=== PATIENT | female | born 1995 | race Caucasian/White ===

== ENCOUNTER 2016-09-01 11:09 | Emergency (ER) | payer OTHER ==
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
--- NOTE | ~2016-09-01 | EKG ---
PATIENT: CHERRY CLIFFORD UNIT #: [id number] Ventricular Rate: 86 BPM Atrial Rate: 86 BPM P-R Interval: 174 ms QRS Duration: 78 ms Q-T Interval: 352 ms QTC Calculation(Bezet): 421 ms P [place]: 34 degrees Calculated R [place]: 13 degrees Calculated T [place]: 16 degrees Diagnosis Line: Normal sinus rhythm Diagnosis Line: Normal ECG Diagnosis Line: When compared with ECG of 12-NOV-2012 03:06, Diagnosis Line: No significant change was found Diagnosis Line: Confirmed by MATTHEW MARTIN MD ([id number]) on 09/07/2016 Diagnosis Line: 7:59:03 PM INTERPRETING MD: VERONICA PRITCHARD
[~2016-09-01 11:09] MED LIST: AUGMENTIN PO; BACTRIM DS TABL1 TA1 PO; BENZONATATE PO; FLEXERIL10 MG PO; GENOPTIC5 ML OP; HYDROCODON-ACE1 EAC9 PO; IBUPROFEN PO; IBUPROFEN600 MG PO; IBUPROFEN800 MG PO; NO MEDICATIONS; ORUDIS75 M1 DOB; PREDNISONE PO; RONDEC-DM ORAL30 ML PO; TYLENOL #3 PO; VENTOLIN5 MG/ML IH; ZITHROMAX PO
[2016-09-03] MEDS ORDERED: NO MEDICATIONS (01:57)
== END 2016-09-01 11:38 | disposition home or self-care (01) ==
LOC: SED 11:09
DX: R07.89 Other chest pain (principal); J06.9 Acute upper respiratory infection, unspecified; M94.0 Chondrocostal junction syndrome [Tietze]; F17.200 Nicotine dependence, unspecified, uncomplicated; Z90.49 Acquired absence of other specified parts of digestive tract
CPT/HCPCS: 71020; 93005; 99284

== ENCOUNTER 2016-09-03 02:20 | Emergency (ER) | payer OTHER ==
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
[2016-09-03 03:27] LABS: BASOPHIL% 0.6 % (0-2.5); EOSINOPHIL% 0.2 % (0.0-7.0); HEMATOCRIT 39.1 % (35.0-45.0); HEMOGLOBIN 13.3 gm/dL (12.0-16.0); LYMPHOCYTE# 0.9 X10e3 (1.0-3.5); LYMPHOCYTE% 27.4 % (17.0-45.0); MEAN CELL VOLUME 88.8 FL (83-96); MEAN CORPUSCULAR HEMOGLOBIN 30.3 PG (28-34); MEAN CORPUSCULAR HGB CONC 34.1 g/dL (30-36); MONOCYTE# 0.4 X10e3 (0-1.0); NEUTROPHIL# 1.9 X10e3 (1.5-7.1); NEUTROPHIL% 59.8 % (40-75); PLATELET COUNT 169 X10e3 (140-420); RED CELL DISTRIBUTION WIDTH 12.5 % (11.0-15.5); WHITE BLOOD COUNT 3.2 X10e3 (4.0-10.5)
[2016-09-03 03:28] LABS: DIFF IND NO
[2016-09-03 03:31] LABS: INFLUENZA A NEG (NEG); INFLUENZA B POS (NEG)
[2016-09-03 03:36] LABS: POC - CKMB <1.0 ng/mL (0.0-7.9); POC - MYOGLOBIN 40.2 ng/mL (0.0-169.0); POC - TROPONIN <0.05 ng/mL (<=0.05)
[2016-09-03 03:41] LABS: ALBUMIN SERUM 4.3 g/dL (3.5-5.0); BUN/CREATININE RATIO 7.77; CALCIUM SERUM 8.7 mg/dL (8.4-10.2); CREATININE SERUM 0.9 mg/dL (0.6-1.4); GLOM FILT RATE Estimated 90.8 mL/min (>60); POTASSIUM 3.9 mmol/L (3.5-5.1); PROTEIN TOTAL SERUM 8.2 g/dL (6.0-8.3)
[2016-09-03 03:45] LABS: URINE SOURCE CLEAN CATCH
[2016-09-03 03:48] LABS: URINE BILIRUBIN NEG (NEG); URINE BLOOD TRACE-INTACT (NEG); URINE COLOR YELLOW; URINE GLUCOSE NEG (NORM); URINE KETONE NEG (NEG); URINE LEUKOCYTE ESTERASE 3+ (NEG); URINE NITRATE NEG (NEG); URINE PROTEIN NEG (NEG)
[2016-09-03 03:55] LABS: MICRO INDICATED? YES; URINE APPEARANCE SL HAZY
[2016-09-03 03:56] LABS: CULTURE INDICATED? YES; URINE BACTERIA NEG (NEG); URINE WBC 50-100 /[HPF] (0-5)
[2016-09-03 03:57] LABS: URINE MUCUS PRESENT; URINE SQUAMOUS EPITHELIAL CELL OCCAS /[HPF]; URINE TRANSITIONAL EPI CELLS FEW /[HPF]
[2016-09-03 03:58] LABS: AMPHETAMINE NEG (NEG); BARBITURATES NEG (NEG); BENZODIAZEPINES POS (NEG); COCAINE NEG (NEG); MARIJUANA POS (NEG); OPIATES POS (NEG); TRICYCLIC ANTIDEPRESSANTS NEG (NEG); U METHADONE NEG (NEG)
== END 2016-09-03 05:40 | disposition home or self-care (01) ==
LOC: SED 02:20
PROVIDERS: Emergency Medicine
DX: S09.90XA Unspecified injury of head, initial encounter (principal); S16.1XXA Strain of muscle, fascia and tendon at neck level, initial encounter; S39.012A Strain of muscle, fascia and tendon of lower back, initial encounter; N39.0 Urinary tract infection, site not specified; J11.1 Influenza due to unidentified influenza virus with other respiratory manifestations; F17.200 Nicotine dependence, unspecified, uncomplicated; F19.10 Other psychoactive substance abuse, uncomplicated; V49.50XA Passenger injured in collision with unspecified motor vehicles in traffic accident, initial encounter
CPT/HCPCS: 36415; 70450; 71020; 72040; 72100; 80053; 80307; 81003; 82553; 83690; 83874; 84484; 84703; 85025; 87086; 87804; 99284

== ENCOUNTER 2017-01-02 00:59 | Emergency (ER) | payer OTHER ==
[~2017-01-02] VITALS: Ht 160 cm; Wt 81.6 kg
[2017-01-02 02:40] LABS: BASOPHIL% 0.8 % (0-2.5); DIFF IND NO; EOSINOPHIL% 0.6 % (0.0-7.0); HEMATOCRIT 38.8 % (35.0-45.0); HEMOGLOBIN 13.3 gm/dL (12.0-16.0); LYMPHOCYTE# 1.4 X10e3 (1.0-3.5); LYMPHOCYTE% 24.1 % (17.0-45.0); MEAN CELL VOLUME 89.5 FL (83-96); MEAN CORPUSCULAR HEMOGLOBIN 30.8 PG (28-34); MEAN CORPUSCULAR HGB CONC 34.4 g/dL (30-36); MEAN PLATELET VOLUME 7.2 FL (6.5-11.5); MONOCYTE# 0.5 X10e3 (0-1.0); MONOCYTE% 9.3 % (3.0-12.0); NEUTROPHIL# 3.8 X10e3 (1.5-7.1); NEUTROPHIL% 65.2 % (40-75); PLATELET COUNT 265 X10e3 (140-420); RED BLOOD COUNT 4.33 X10e (3.90-5.30); RED CELL DISTRIBUTION WIDTH 12.5 % (11.0-15.5); WHITE BLOOD COUNT 5.7 X10e3 (4.0-10.5)
[2017-01-02 03:04] LABS: ALBUMIN SERUM 4.4 g/dL (3.5-5.0); BILIRUBIN, DIRECT 0.1 mg/dL (0.0-0.2); BILIRUBIN,INDIRECT 0.8 mg/dL (0.0-0.9); BILIRUBIN,TOTAL 0.9 mg/dL (0.2-2.0); CALCIUM SERUM 8.8 mg/dL (8.4-10.2); CREATININE SERUM 0.8 mg/dL (0.6-1.4); GLOM FILT RATE Estimated 104.7 mL/min (>60); POTASSIUM 3.1 mmol/L (3.5-5.1); PROTEIN TOTAL SERUM 7.6 g/dL (6.0-8.3)
== END 2017-01-02 04:40 | disposition home or self-care (01) ==
LOC: CED 00:59
PROVIDERS: Physician Assistant
DX: M79.662 Pain in left lower leg (principal); F17.210 Nicotine dependence, cigarettes, uncomplicated; Z98.890 Other specified postprocedural states
CPT/HCPCS: 29505; 36415; 73560; 80048; 80076; 84703; 85025; 85379; 85652; 86140; 96374; 99284; J1885